=== PATIENT | male | born 1970 | race Caucasian/White ===

== ENCOUNTER 2017-05-04 11:22 | Emergency (ER) | payer BC, OTHER ==
--- NOTE | 2017-05-04 11:34 | PDOC ---
History of Present Illness - General Chief Complaint: Injury Stated Complaint: RT ARM LACERATION Time Seen by Provider: 05/04/17 11:30 History Source: Patient - History of Present Illness Timing/Duration: reports: this morning Location: reports: extremities Past History - Past Medical History Allergies/Adverse Reactions: Allergies Allergy/AdvReac Type Severity Reaction Status Date / Time No Known Allergies Allergy Verified 05/04/17 11:29 Home Medications: Ambulatory Orders No Home Medications 0 dose .ROUTE UTDICT 07/16/12 HTN: Yes Liver Disease: Yes (FATTY LIVER) - Suicide/Smoking/Psychosocial Hx Smoking Status: No Smoking History: Never smoked Number of Cigarettes Smoked Daily: 0 Information on smoking cessation initiated: No Hx Alcohol Use: No Drug/Substance Use Hx: No Substance Use Type: Marijuana Review of Systems - Review of Systems Neurological: No: Numbness, Tingling, Weakness *Physical Exam - Vital Signs Last Vital Signs Temp Pulse Resp BP Pulse Ox 98 F 80 19 143/99 98 05/04/17 11:27 05/04/17 11:27 05/04/17 11:27 05/04/17 11:27 05/04/17 11:27 - Physical Exam General Appearance: Yes: Appropriately Dressed. No: Apparent Distress HEENT: positive: Normal Voice Neck: positive: Supple Respiratory/Chest: negative: Respiratory Distress Integumentary: positive: Dry, Warm, Other (~3cm linear lac down to subq tissue to volar aspect of distal R forearm , FROMI to fingers/wrist, NVI) Neurologic: positive: Fully Oriented, Alert, Normal Mood/Affect Procedures - Laceration/Wound Repair Right Arm Wound Length: 2.6 to 5.0 cm Wound's Depth, Shape: superficial Irrigated w/ Saline: Yes Betadine Prep: Yes Anesthesia: 1% Lidocaine (7) Wound Repaired With: Sutures Suture Size/Type: 4:0, nylon Number of Sutures: 12 Sterile Dressing Applied: Yes Medical Decision Making - Medical Decision Making 05/04/17 11:31 47-year-old male, no significant history, here with laceration to right forearm after accidentally striking arm against tile today at work. No numbness or tingling. Tetanus up-to-date per pt See exam Forearm lac No complications -lac repair -wound check as needed *DC/Admit/Observation/Transfer Diagnosis at time of Disposition: Laceration - Discharge Dispostion Disposition: HOME Condition at time of disposition: Good - Referrals - Patient Instructions Printed Discharge Instructions: Laceration Repair Additional Instructions: Keep dressing in place for at least 24 hours after which one can be opened to air. You can gently cleaned wound with mild soap and water after 24 hours to prevent crusting over the suture knots. You can also apply an antibiotic ointment twice a day until sutures are removed. Return for redness, discharge or fever Sutures are removed in 7 days - Post Discharge Activity
[2017-05-04 11:43] VITALS: BP 143/99; PULSE 80; TEMP 98; BMI 28.8
== END 2017-05-04 12:10 | disposition home or self-care (01) ==
LOC: JERFT 11:22
PROC: 0HQDXZZ Repair Right Lower Arm Skin, External Approach (ICD-10-PCS; principal; 2017-05-04)
DX: S41.111A Laceration without foreign body of right upper arm, initial encounter (principal); W45.8XXA Other foreign body or object entering through skin, initial encounter; Y93.89 Activity, other specified; Y92.9 Unspecified place or not applicable; Y99.0 Civilian activity done for income or pay; I10 Essential (primary) hypertension; K76.0 Fatty (change of) liver, not elsewhere classified
CPT/HCPCS: 99281-25

== ENCOUNTER 2017-05-11 11:09 | Emergency (ER) | payer BC, OTHER ==
[2017-05-11 11:15] VITALS: BP 130/95; PULSE 78; TEMP 97.7; BMI 33.4
--- NOTE | 2017-05-11 11:51 | PDOC ---
Suture Removal/Wound Check HPI - History of Present Illness Chief Complaint: Suture/Staple Removal(Here) Stated Complaint: SUTURE REMOVAL Time Seen by Provider: 05/11/17 11:31 History Source: Yes: Patient Exam Limitations: Yes: No Limitations Treated at: [facility] ED - Previous ED Treatment Type of procedure performed on last visit: Yes: Laceration Repair Tetanus Immunization: Yes: Up to Date - Onset of Previous Treatment Comment:: 05/11/17 13:11 patient came for suture removal of right forearm laceration. States was repaired approximately 7 days ago but does not feel wound is well-healed thus far. Denies fever, purulent drainage or redness however is tender with healing hematoma underneath wound site. No numbness or tingling to hands, no other injury. Past History - Travel Traveled outside of the country in the last 30 days: No Close contact w/someone who was outside of country & ill: No - Past Medical History Allergies/Adverse Reactions: Allergies Allergy/AdvReac Type Severity Reaction Status Date / Time No Known Allergies Allergy Verified 05/11/17 11:11 Home Medications: Ambulatory Orders No Home Medications 0 dose .ROUTE UTDICT 07/16/12 CVA: No COPD: No DVT: No HTN: Yes Liver Disease: Yes (FATTY LIVER) - Immunization History Immunization Up to Date: Yes - Suicide/Smoking/Psychosocial Hx Smoking Status: No Smoking History: Never smoked Have you smoked in the past 12 months: No Number of Cigarettes Smoked Daily: 0 Information on smoking cessation initiated: No Hx Alcohol Use: No Drug/Substance Use Hx: No Substance Use Type: Marijuana Suture Removal/Wound Check PE - Physical Exam Laceration/Wound Check Symptoms: reports: Pain Comments: 05/11/17 13:12 to wound site but with no sighns of infection. Current Severity Level: None Maximum Severity Level: None Medical Decision Making - Medical Decision Making 05/11/17 13:12 wound check right forearm suture linbe. Not well approximated - will wiat for additional 4-7 days for removal *DC/Admit/Observation/Transfer Diagnosis at time of Disposition: Visit for wound check - Discharge Dispostion Disposition: HOME Condition at time of disposition: Stable Admit: No - Referrals Referrals: Johnny Caban MD [Primary Care Provider] - - Patient Instructions Printed Discharge Instructions: Skin Wound - Post Discharge Activity
== END 2017-05-11 11:53 | disposition home or self-care (01) ==
LOC: JERFT 11:09
DX: Z48.02 Encounter for removal of sutures (principal)
CPT/HCPCS: 99281-25

== ENCOUNTER 2017-05-17 14:15 | Emergency (ER) | payer BC, OTHER ==
--- NOTE | 2017-05-17 14:19 | PDOC ---
Rapid Medical Evaluation Time Seen by Provider: 05/17/17 14:17 Medical Evaluation: Allergies Allergy/AdvReac Type Severity Reaction Status Date / Time No Known Allergies Allergy Verified 05/11/17 11:11 05/17/17 14:18 The patient presents with a chief complaint of: Here to have sutures removed I have performed a brief in-person evaluation of this patient; Pertinent physical exam findings: ambulatory, in no respiratory distress I have ordered the following: The patient will proceed to the ED for further evaluation. Discharge Disposition - Referrals Referrals: Johnny Caban MD [Primary Care Provider] - - Patient Instructions - Post Discharge Activity
[2017-05-17 14:20] VITALS: BP 145/98; PULSE 97; TEMP 98; BMI 34.2
--- NOTE | 2017-05-17 14:20 | PDOC ---
Suture Removal/Wound Check HPI - History of Present Illness Chief Complaint: Suture/Staple Removal(Here) Stated Complaint: Suture/Staple Removal Time Seen by Provider: 05/17/17 14:17 Past History - Past Medical History Allergies/Adverse Reactions: Allergies Allergy/AdvReac Type Severity Reaction Status Date / Time No Known Allergies Allergy Verified 05/17/17 14:20 Home Medications: Ambulatory Orders No Home Medications 0 dose .ROUTE UTDICT 07/16/12 CVA: No COPD: No DVT: No HTN: Yes Liver Disease: Yes (FATTY LIVER) - Immunization History Immunization Up to Date: Yes - Suicide/Smoking/Psychosocial Hx Smoking Status: No Smoking History: Never smoked Have you smoked in the past 12 months: No Number of Cigarettes Smoked Daily: 0 Hx Alcohol Use: No Drug/Substance Use Hx: No Substance Use Type: Marijuana *DC/Admit/Observation/Transfer Diagnosis at time of Disposition: Visit for suture removal - Discharge Dispostion Disposition: HOME Condition at time of disposition: Stable Admit: No - Referrals Referrals: Johnny Caban MD [Primary Care Provider] - - Patient Instructions Printed Discharge Instructions: DI for Suture Removal Additional Instructions: You had your stitches removed today. Continue to keep the wound clean and dry. Do not soak the wound. Let the steri-strips fall off on their own. They are to support the wound while it heals further. In one week you may use Mederma on the site to help heal the scar. Return to the ED if you have opening of the wound, signs of infection including fevers, green yellow drainage, or have any changes in your symptoms. - Post Discharge Activity Forms/Work/School Notes: Back to Work
== END 2017-05-17 14:58 | disposition home or self-care (01) ==
LOC: JERFT 14:15
DX: Z48.02 Encounter for removal of sutures (principal)
CPT/HCPCS: 99281-25